=== PATIENT | male | born 1980 | race Caucasian/White ===

== ENCOUNTER 2017-04-07 18:32 | Inpatient (IN) | payer OTHER ==
[~2017-04-07] VITALS: Ht 188 cm; Wt 87.0 kg
--- NOTE | 2017-04-07 19:13 | DIAGNOSTIC IMAGING REPORT ---
LEFT FOREARM 2 VIEWS ROUTINE CLINICAL HISTORY: L forearm pain/injury. COMPARISON: None FINDINGS: No acute fracture of the left radius or ulna is identified. There is no evidence for left elbow joint effusion. There is minimal spurring of the olecranon at the insertion of triceps. IMPRESSION: No acute fracture of the left radius or ulna. Electronically signed by: Derrek Fermin M.D. 04/07/2017 7:12 PM Dictated Date/Time: 04/07/2017 7:10 PM
[2017-04-07] MEDS ORDERED: SODIUM CHLORIDE 0.9% 1000ML 1,000 ML IV STA (19:26)
[2017-04-07] MEDS ORDERED: CEFTRIAXONE SOD INJ 1 GM ADDVIAL IV STA (19:26)
[2017-04-07] MEDS ORDERED: KETOROLAC TROMETHAMINE 30 MG/ML VIAL IV STA (19:26)
[2017-04-07] MEDS ORDERED: SULFAMETHOXAZOLE/TRIMETHOPRIM DS 800/160MG TAB PO STA (19:26)
[2017-04-07] MEDS ORDERED: SERT-234 PO (19:54)
[2017-04-07] MEDS ORDERED: PRLSR20 PO (19:54)
[2017-04-07 20:03] LABS: BASO % 0.2 %; BASO ABS # 0.02 K/uL (0-0.2); COMPLETE YES; EOS % 0.3 %; HEMATOCRIT 39.6 % (42-52); IG% 0.4 %; LYMPH % 21.1 %; LYMPH ABS # 2.76 K/uL (1.2-3.4); MEAN CELL VOLUME 81.1 fL (80-100); MEAN CORPUSCULAR HEMOGLOBIN 28.1 pg (25-34); MEAN CORPUSCULAR HGB CONC 34.6 g/dl (32-36); MEAN PLATELET VOLUME 9.4 fL (7.4-10.4); PLATELET COUNT 352 K/uL (130-400); RED BLOOD COUNT 4.88 M/uL (4.7-6.1); WHITE BLOOD COUNT 13.08 K/uL (4.8-10.8)
--- NOTE | 2017-04-07 20:31 | DIAGNOSTIC IMAGING REPORT ---
LEFT FOREARM ULTRASOUND CLINICAL HISTORY: Left forearm swelling. COMPARISON STUDY: Conventional radiographic study dated 04/07/2017 FINDINGS: Within the left proximal anterior forearm, there is soft tissue edema. There is a complex avascular subcutaneous collection with surrounding hypervascularity measuring 5.8 x 1.9 x 3.5 cm. Given the clinical history of an overlying cellulitis, the findings are viewed as suspicious for an abscess. An organizing hematoma could appear similar. IMPRESSION: Complex 58 x 19 x 35 mm collection within the anterior subcutaneous tissues of the proximal left forearm. Given the clinical history, the findings are viewed as suspicious for abscess. As stated above, an organizing hematoma could appear similar. Electronically signed by: Giuseppe Perez M.D. 04/07/2017 8:30 PM Dictated Date/Time: 04/07/2017 8:28 PM
[2017-04-07 20:35] LABS: ALKALINE PHOSPHATASE 92 U/L (45-117); ALT/SGPT 23 U/L (12-78); AST/SGOT 13 U/L (15-37); BLOOD UREA NITROGEN 7 mg/dl (7-18); BUN/CREATININE RATIO 9.4 (10-20); C-REACTIVE PROTEIN 3.57 mg/dl (0-0.29); CALCIUM 9.1 mg/dl (8.5-10.1); CARBON DIOXIDE 27 mmol/L (21-32); CHLORIDE 101 mmol/L (98-107); CREATININE 0.73 mg/dl (0.60-1.40); GLUCOSE 97 mg/dl (70-99); POTASSIUM 3.8 mmol/L (3.5-5.1); SODIUM 135 mmol/L (136-145)
[2017-04-07] MEDS ORDERED: PIPERACILLIN/TAZOBACTAM 4.5 GM/100ML D5W IV STA (21:26)
[2017-04-07] MEDS ORDERED: BUPIVACAINE/EPINEPHRINE 0.5% MPF 1:200,000 10 ML VIAL ONE (22:11)
--- NOTE | 2017-04-07 22:15 | Surgery Consultation ---
Consultation Date of Consultation: Apr 07, 2017. Attending Physician: History of Present Illness The patient is a 36 year old male who presents to the Emergency Room with complaints of redness, swelling and pain of the left arm/elbow region. The patient believes that he injured the area on Thursday while wrestling with his son. He mainly notice swelling of the area within a few hours. He does not recall any skin injury to the area. Within 48 hours, he then started to notice redness of the region. He also reports being chilled. He has tried to apply ice without any relief of the swelling or pain. Ibuprofen also is not providing adequate pain relief. He currently rates his discomfort a 5 out of 10. The patient does admit to a prior history of IV heroin abuse, but reports that his last injection was in late June. He reports that he has been clean since that time. He denies any prior history of metabolic resistant infections. He did have a right dorsal hand abscess that was drained 1-2 years ago, and believes that that was secondary to IV drug abuse. He currently denies any paresthesias or numbness of the left upper extremity. The patient is [id number]. Tetanus immunization is up-to-date. I saw pt in ER, I reviewed H/P with pt, left arm for one day, with redness tenderness, pt denies fever, no chills, Past Medical/Surgical History Medical Problems: (1) Altered mental status Status: Acute (2) Polysubstance abuse Status: Acute Social History Smoking Status: Current Every Day Smoker Smokeless Tobacco Use: No Alcohol Use: occasionally Drug Use: heroin Marital Status: Occupation Status: employed Allergies Coded Allergies: No Known Allergies (Unverified , 04/07/17) Home Medications Scheduled Omeprazole (Prilosec), 20 MG PO DAILY Sertraline (Zoloft), 100 MG PO QPM Review of Systems Constitutional: No fever, No chills, No sweats, No weight loss, No weakness, No fatigue, No problem reported Eyes: No worsening of vision, No eye pain, No redness, No discharge, No diplopia, No problem reported ENT: No hearing loss, No unusual epistaxis, No nasal symptoms, No sore throat, No tinnitus, No dental problems, No trouble swallowing, No problem reported Respiratory: No cough, No sputum, No wheezing, No shortness of breath, No dyspnea on exertion, No dyspnea at rest, No hemoptysis, No problem reported Cardiovascular: No chest pain, No orthopnea, No PND, No edema, No claudication , No palpitations, No problem reported Abdomen: No pain, No nausea, No vomiting, No diarrhea, No constipation, No GI bleeding, No problem reported Musculoskeletal: No joint pain, No muscle pain, No swelling, No calf pain, No problem reported Neurologic: No memory loss, No paralysis, No weakness, No numbness/tingling, No vertigo, No balance problems, No problem reported Psychiatric: No depression symptoms, No anhedonism, No anxiety, No insomnia, No substance abuse, No problem reported Endocrine: No fatigue, No excessive thirst, No excessive urination, No problem reported Hematologic / Lymphatic: No abnormal bleeding/bruising, No clotting problems, No swollen lymph nodes, No night sweats, No problem reported Physical Exam Date Time Temp Pulse Resp B/P (MAP) Pulse Ox O2 Delivery O2 Flow Rate FiO2 04/07/17 20:49 95 18 140/85 98 Room Air 04/07/17 18:41 36.0 101 16 152/80 98 General Appearance: WD/WN, no apparent distress Head: normocephalic Eyes: normal inspection Neck: supple, no JVD Respiratory/Chest: chest non-tender, lungs clear, normal breath sounds Cardiovascular: regular rate, rhythm, no edema, no gallop, no JVD Abdomen/GI: normal bowel sounds, non tender, soft, no organomegaly Extremities/Musculoskelatal: normal inspection, no calf tenderness Neurologic/Psych: no motor/sensory deficits, alert, normal mood/affect Skin: warm/dry (some redness tenderness at left arm, size 5x6cm, warm) Laboratory Results Last 24 Hours Test 04/07/17 19:40 04/07/17 19:48 04/07/17 21:45 White Blood Count 13.08 K/uL Red Blood Count 4.88 M/uL Hemoglobin 13.7 g/dL Hematocrit 39.6 % Mean Corpuscular Volume 81.1 fL Mean Corpuscular Hemoglobin 28.1 pg Mean Corpuscular Hemoglobin Concent 34.6 g/dl Platelet Count 352 K/uL Mean Platelet Volume 9.4 fL Neutrophils (%) (Auto) 72.0 % Lymphocytes (%) (Auto) 21.1 % Monocytes (%) (Auto) 6.0 % Eosinophils (%) (Auto) 0.3 % Basophils (%) (Auto) 0.2 % Neutrophils # (Auto) 9.43 K/uL Lymphocytes # (Auto) 2.76 K/uL Monocytes # (Auto) 0.78 K/uL Eosinophils # (Auto) 0.04 K/uL Basophils # (Auto) 0.02 K/uL RDW Standard Deviation 42.9 fL RDW Coefficient of Variation 14.5 % Immature Granulocyte % (Auto) 0.4 % Immature Granulocyte # (Auto) 0.05 K/uL Erythrocyte Sedimentation Rate 50 mm/hr Sodium Level 135 mmol/L Potassium Level 3.8 mmol/L Chloride Level 101 mmol/L Carbon Dioxide Level 27 mmol/L Anion Gap 7.0 mmol/L Blood Urea Nitrogen 7 mg/dl Creatinine 0.73 mg/dl Est Creatinine Clear Calc Drug Dose 161.2 ml/min Estimated GFR () 137.3 Estimated GFR (Non- 118.5 BUN/Creatinine Ratio 9.4 Random Glucose 97 mg/dl Calcium Level 9.1 mg/dl Total Bilirubin 0.4 mg/dl Direct Bilirubin mg/dl Aspartate Amino Transf (AST/SGOT) 13 U/L Alanine Aminotransferase (ALT/SGPT) 23 U/L Alkaline Phosphatase 92 U/L C-Reactive Protein 3.57 mg/dl Total Protein 8.7 gm/dl Albumin 3.7 gm/dl Chemistry Specimen Hemolysis Bedside Lactic Acid Venous 2.13 mmol/L Assessment & Plan U/S study-IMPRESSION: Complex 58 x 19 x 35 mm collection within the anterior subcutaneous tissues of the proximal left forearm. Given the clinical history, the findings are viewed as suspicious for abscess. As stated above, an organizing hematoma could appear similar. IMP: abscess on left arm, Plan: I recommend to do I/D abscess on left arm, D/W benefits, risks and alternatives of the procedure, the risks- infection, bleeding, sepsis, injury vessels, never, pt understood, he agrees with the plan, I answered all questions ,
[2017-04-07 22:18] LABS: BENZODIAZEPINE, URINE NEG (NEG); COCAINE,URINE NEG (NEG); PHENCYCLIDINE, URINE NEG (NEG)
[2017-04-07] MEDS ORDERED: FENTANYL CITRATE INJ 50 MCG/1 ML 2 ML VIAL ONE ×2 (22:27→23:17)
[2017-04-07] MEDS ORDERED: MIDAZOLAM HCL 1 MG/ML 2ML VIAL ONE (22:27)
[2017-04-07] MEDS ORDERED: POLYETHYLENE (MIRALAX) 17 GM PACK PO PRN (22:45)
[2017-04-07] MEDS ORDERED: ONDANSETRON INJ 2 MG/ML 2 ML VIAL IV PRN ×2 (22:45→23:00)
[2017-04-07] MEDS ORDERED: MAGNESIUM HYDROXIDE SUSP 30 ML UDC PO PRN (22:45)
--- NOTE | 2017-04-07 22:49 | History & Physical Bridge Note ---
H&P Re-Evaluation Bridge Note: I have examined the patient, reviewed the History & Physical and in the interval since the performance of the History & Physical I have noted the following changes of clinical significance: No changes noted
--- NOTE | 2017-04-07 22:59 | EMERGENCY ROOM VISIT NOTE ---
History First contact with patient: 18:47 Chief Complaint: ARM PAIN Stated Complaint: SWOLLEN LEFT ARM History of Present Illness The patient is a 36 year old male who presents to the Emergency Room with complaints of redness, swelling and pain of the left arm/elbow region. The patient believes that he injured the area on Thursday while wrestling with his son. He mainly notice swelling of the area within a few hours. He does not recall any skin injury to the area. Within 48 hours, he then started to notice redness of the region. He also reports being chilled. He has tried to apply ice without any relief of the swelling or pain. Ibuprofen also is not providing adequate pain relief. He currently rates his discomfort a 5 out of 10. The patient does admit to a prior history of IV heroin abuse, but reports that his last injection was in late June. He reports that he has been clean since that time. He denies any prior history of antibiotic resistant infections. He did have a right dorsal hand abscess that was drained 1-2 years ago, and believes that that was secondary to IV drug abuse. He currently denies any paresthesias or numbness of the left upper extremity. The patient is [id number]. Tetanus immunization is up-to-date. Review of Systems HEENT: Denies dizziness, visual problems, hearing loss, tinnitus. Denies difficulty swallowing or oral lesions. PULMONARY: Denies cough, shortness of breath, sputum production or hemoptysis. CARDIOVASCULAR: Denies chest pain, palpitations, dyspnea on exertion, orthopnea or peripheral edema. GASTROINTESTINAL: Denies diarrhea, constipation, nausea, vomiting, or abdominal pain. GENITOURINARY: Denies dysuria, frequency, urgency or nocturia. NEUROLOGIC: Denies history of epilepsy, CVA, TIA or chronic headaches. MUSCULOSKELETAL: Denies history of joint tenderness/swelling. SKIN: Denies history of chronic rashes or lesions. PSYCHIATRIC: Denies history of depression or mental illness. ENDOCRINE: Denies history of diabetes or thyroid disorders. Past Medical/Surgical History Medical Problems: (1) Abscess (2) Drug overdose Family History FH: cancer FH: diabetes mellitus FH: hypertension Social History Smoking Status: Current Every Day Smoker Alcohol Use: none Drug Use: heroin Marital Status: Occupation Status: employed Current/Historical Medications Scheduled Omeprazole (Prilosec), 20 MG PO DAILY Sertraline (Zoloft), 100 MG PO QPM Physical Exam Vital Signs Date Time Temp Pulse Resp B/P (MAP) Pulse Ox O2 Delivery O2 Flow Rate FiO2 04/08/17 00:15 36.6 72 15 119/74 100 Room Air 04/08/17 00:05 36.6 75 15 118/80 98 Room Air 04/07/17 23:55 36.6 75 16 123/78 97 Room Air 04/07/17 23:45 36.5 82 16 131/79 95 Room Air 04/07/17 22:31 36.0 93 18 142/89 99 04/07/17 20:49 95 18 140/85 98 Room Air 04/07/17 18:41 36.0 101 16 152/80 98 Physical Exam CONSTITUTIONAL: Healthy and well nourished. Alert and oriented X 3 with positive affect. Patient does not appear acutely or toxic. HEENT: Normocephalic, atraumatic. Pupils equal, round and reactive. No scleral icterus or conjunctival injection/pallor. NECK: Full active range of motion without discomfort. No JVD or carotid bruits. RESPIRATORY: Clear to auscultation bilaterally with no wheezing, crackles, rhonchi or stridor. CARDIOVASCULAR: Regular rate and rhythm with no murmurs, rubs or gallops. GASTROINTESTINAL: Bowel sounds present in all quadrants. Soft and nontender to palpation. MUSCULOSKELETAL: Examination shows a large area of induration of the proximal anterior forearm. There is significant overriding erythema. No obvious fluctuance. Flexion and extension of the elbow worsens the patient's discomfort. He has no worsening pain with flexion or extension of the fingers or wrist. Distal pulses are intact. INTEGUMENTARY: No other rashes or skin conditions except as described in the previous section for current infection. NEUROLOGIC: Cranial nerves II-XII grossly intact. No focal neurologic deficits noted. Left hand and fingers are sensory intact. Medical Decision & Procedures ER Provider Diagnostic Interpretation: My interpretation of left forearm x-rays does not show any underlying evidence for osteomyelitis or radiopaque foreign bodies. Radiologist report is as follows: LEFT FOREARM 2 VIEWS ROUTINE CLINICAL HISTORY: L forearm pain/injury. COMPARISON: None FINDINGS: No acute fracture of the left radius or ulna is identified. There is no evidence for left elbow joint effusion. There is minimal spurring of the olecranon at the insertion of triceps. IMPRESSION: No acute fracture of the left radius or ulna. Nonvascular ultrasound of the left elbow shows a large complex volar proximal forearm abscess. Radiologist report is as follows: LEFT FOREARM ULTRASOUND CLINICAL HISTORY: Left forearm swelling. COMPARISON STUDY: Conventional radiographic study dated 04/07/2017 FINDINGS: Within the left proximal anterior forearm, there is soft tissue edema. There is a complex avascular subcutaneous collection with surrounding hypervascularity measuring 5.8 x 1.9 x 3.5 cm. Given the clinical history of an overlying cellulitis, the findings are viewed as suspicious for an abscess. An organizing hematoma could appear similar. IMPRESSION: Complex 58 x 19 x 35 mm collection within the anterior subcutaneous tissues of the proximal left forearm. Given the clinical history, the findings are viewed as suspicious for abscess. As stated above, an organizing hematoma could appear similar. Laboratory Results 04/07/17 19:40 Red Blood Count 4.88, Mean Corpuscular Volume 81.1, Mean Corpuscular Hemoglobin 28.1, Mean Corpuscular Hemoglobin Concent 34.6, Mean Platelet Volume 9.4, Neutrophils (%) (Auto) 72.0, Lymphocytes (%) (Auto) 21.1, Monocytes (%) (Auto) 6.0, Eosinophils (%) (Auto) 0.3, Basophils (%) (Auto) 0.2, Neutrophils # (Auto) 9.43, Lymphocytes # (Auto) 2.76, Monocytes # (Auto) 0.78, Eosinophils # (Auto) 0.04, Basophils # (Auto) 0.02 04/07/17 19:40 Test 04/07/17 19:40 04/07/17 19:48 04/07/17 21:45 White Blood Count 13.08 K/uL (4.8-10.8) Red Blood Count 4.88 M/uL (4.7-6.1) Hemoglobin 13.7 g/dL (14.0-18.0) Hematocrit 39.6 % (42-52) Mean Corpuscular Volume 81.1 fL (80-100) Mean Corpuscular Hemoglobin 28.1 pg (25-34) Mean Corpuscular Hemoglobin Concent 34.6 g/dl (32-36) Platelet Count 352 K/uL (130-400) Mean Platelet Volume 9.4 fL (7.4-10.4) Neutrophils (%) (Auto) 72.0 % Lymphocytes (%) (Auto) 21.1 % Monocytes (%) (Auto) 6.0 % Eosinophils (%) (Auto) 0.3 % Basophils (%) (Auto) 0.2 % Neutrophils # (Auto) 9.43 K/uL (1.4-6.5) Lymphocytes # (Auto) 2.76 K/uL (1.2-3.4) Monocytes # (Auto) 0.78 K/uL (0.11-0.59) Eosinophils # (Auto) 0.04 K/uL (0-0.5) Basophils # (Auto) 0.02 K/uL (0-0.2) RDW Standard Deviation 42.9 fL (36.4-46.3) RDW Coefficient of Variation 14.5 % (11.5-14.5) Immature Granulocyte % (Auto) 0.4 % Immature Granulocyte # (Auto) 0.05 K/uL (0.00-0.02) Erythrocyte Sedimentation Rate 50 mm/hr (0-14) Anion Gap 7.0 mmol/L (3-11) Est Creatinine Clear Calc Drug Dose 161.2 ml/min Estimated GFR () 137.3 Estimated GFR (Non- 118.5 BUN/Creatinine Ratio 9.4 (10-20) Calcium Level 9.1 mg/dl (8.5-10.1) Total Bilirubin 0.4 mg/dl (0.2-1) Direct Bilirubin mg/dl (0-0.2) Aspartate Amino Transf (AST/SGOT) 13 U/L (15-37) Alanine Aminotransferase (ALT/SGPT) 23 U/L (12-78) Alkaline Phosphatase 92 U/L (45-117) Total Creatine Kinase 70 U/L (39-308) C-Reactive Protein 3.57 mg/dl (0-0.29) Total Protein 8.7 gm/dl (6.4-8.2) Albumin 3.7 gm/dl (3.4-5.0) Chemistry Specimen Hemolysis Bedside Lactic Acid Venous 2.13 mmol/L (0.90-1.70) Urine Opiates Screen NEG (NEG) Urine Methadone, Qualitative NEG (NEG) Urine Barbiturates NEG (NEG) Urine Phencyclidine (PCP) Level NEG (NEG) Ur Amphetamine/Methamphetamine NEG (NEG) MDMA (Ecstasy) Screen NEG (NEG) Urine Benzodiazepines Screen NEG (NEG) Urine Cocaine Metabolite NEG (NEG) Urine Marijuana (THC) NEG (NEG) The above labs were reviewed. The patient has a leukocytosis with left shift and bandemia. Lactate, CRP and sedimentation rate are elevated. Urine drug screen is negative. Medications Administered Medications (Trade) Dose Ordered Sig/Mer Route Start Time Stop Time Status Last Admin Dose Admin Sodium Chloride 1,000 ml @ 999 mls/hr Q1H1M STAT IV 04/07/17 19:26 04/07/17 20:26 DC 04/07/17 19:57 999 MLS/HR Ceftriaxone Sodium (Rocephin Inj) 1 gm NOW STAT IV 04/07/17 19:26 04/07/17 19:31 DC 04/07/17 19:57 1 GM Trimethoprim/ Sulfamethoxazole (Septra Ds 800/ 160MG Tab) 1 tab NOW STAT PO 04/07/17 19:26 04/07/17 19:31 DC 04/07/17 19:56 1 TAB Ketorolac Tromethamine (Toradol Inj) 30 mg NOW STAT IV 04/07/17 19:26 04/07/17 19:31 DC 04/07/17 19:57 30 MG Piperacillin Sod/ Tazobactam Sod (Zosyn Iv) 4.5 gm NOW STAT IV 04/07/17 21:26 04/07/17 21:27 DC 04/07/17 21:46 4.5 GM Neomycin/ Polymyxin/ Bacitracin (Neosporin Oint) 45 appln STK-MED ONCE .ROUTE 04/07/17 23:01 04/07/17 23:02 DC 04/07/17 23:20 45 APPLN Lidocaine HCl (Xylocaine 1% Inj (Local)) 20 ml STK-MED ONCE .ROUTE 04/07/17 23:16 04/07/17 23:17 DC 04/07/17 23:25 20 ML Bupivacaine HCl (Marcaine 0.5% MPF Inj) 30 ml STK-MED ONCE .ROUTE 04/07/17 23:16 04/07/17 23:17 DC 04/07/17 23:25 20 ML ED Course Patient history and physical exam were performed. Nurse's notes were reviewed. Vital signs were reviewed. The patient is afebrile, but mildly tachycardic at 101 bpm. Blood pressure is normal. Because of concern for abscess versus cellulitis, I did suggest a more extensive workup. The patient was in agreement. IV access was established, and labs were drawn including including blood cultures 2. After blood cultures were drawn, the patient was administered Rocephin 1 g IV infusion and Bactrim DS orally. X-rays of the left forearm were normal. Nonvascular ultrasound of the left anterior elbow region shows a large complex proximal forearm abscess. Review of labs shows an elevated lactate, sedimentation rate and CRP. At this point, the patient was also administered Zosyn 4.5 mg IVP. The case was also discussed with Dr. Bautista , ED attending physician, who agrees surgical consultation. The case was first discussed with Dr. Chapin, general surgeon, who came to the emergency department, evaluated the patient and will be taking the patient for surgical intervention. He has asked that the hospitalist service provide further medical management. Consultation will also be made with Dr. Whiteside, [facility] hospitalist. Medical Decision Patient has ultrasound findings concerning for a large proximal forearm abscess on ultrasound. The patient denies any recent IV heroin use. His urine drug screen is negative. X-rays does not show any evidence for underlying bony injury, osteomyelitis or radiopaque foreign body. Medication Reconcilliation Current Medication List: was personally reviewed by ca Blood Pressure Screening Patient's blood pressure: Normal blood pressure Impression Primary Impression: Abscess of forearm, left Departure Information Referrals Jayleen Correia MD (PCP) Patient Instructions My [facility]
[2017-04-07] MEDS ORDERED: PROMETHAZINE HCL INJ 12.5 MG in SODIUM CHLORIDE 0.9% 50ML 50 ML IV PRN (23:00)
[2017-04-07] MEDS ORDERED: HYDROmorphone INJ 2 MG/ML SYR/VIAL IV PRN (23:00)
[2017-04-07] MEDS ORDERED: LABETALOL HCL IV 5 MG/ML 20ML IV PRN (23:00)
[2017-04-07] MEDS ORDERED: ATROPINE SULFATE 0.1 MG/ML 5ML SYR IV PRN (23:00)
[2017-04-07] MEDS ORDERED: CEFAZOLIN IV 2,000 MG/60 ML D5W IV SCH (23:00)
--- NOTE | 2017-04-07 23:00 | History and Physical ---
History & Physical Date & Time of Service: Apr 07, 2017 at 22:57 Chief Complaint: Swollen Left Arm Primary Care Physician: Jayleen Correia MD History of Present Illness Source: patient 36-year-old male presents to the ER with complaints of swelling, redness and pain in his left forearm which started about 2 days ago. The patient states that he notices swelling after he was wrestling with his son. Complains of some pain about 3-4/10 which is localized to the area and worse on extending or flexing the elbow joint. Denies any numbness or tingling or loss of motor strength in the affected arm. He denies any history of trauma, insect bites. 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 Complains of some low-grade fever with chills and sweating Past Medical/Surgical History IV drug overdose Social History Smoking Status: Current Every Day Smoker Smokeless Tobacco Use: No Alcohol Use: occasionally Drug Use: heroin Marital Status: Housing status: lives with family Occupational Status: employed Multi-Drug Resistant Organisms History of MDRO: No Allergies Coded Allergies: No Known Allergies (Unverified , 04/07/17) Home Medications Scheduled Omeprazole (Prilosec), 20 MG PO DAILY Sertraline (Zoloft), 100 MG PO QPM Review of Systems Constitutional: + fever, + chills, + sweats Eyes: No worsening of vision ENT: No hearing loss Respiratory: No cough Cardiovascular: No chest pain Abdomen: No pain, No nausea, No vomiting Musculoskeletal: + swelling (on proximal left forearm), No joint pain Genitourinary - Male: No hematuria, No dysuria Neurologic: No memory loss Psychiatric: No depression symptoms Endocrine: No fatigue Hematologic / Lymphatic: No abnormal bleeding/bruising Physical Exam Vital Signs Date Time Temp Pulse Resp B/P (MAP) Pulse Ox O2 Delivery O2 Flow Rate FiO2 04/07/17 22:31 36.0 93 18 142/89 99 04/07/17 20:49 95 18 140/85 98 Room Air 04/07/17 18:41 36.0 101 16 152/80 98 General Appearance: no apparent distress Head: atraumatic ENT: hearing grossly normal Neck: supple Respiratory/Chest: lungs clear, normal breath sounds, no respiratory distress Cardiovascular: regular rate, rhythm, no murmur Abdomen/GI: normal bowel sounds, non tender, soft Extremities/Musculoskelatal: no pedal edema, + pertinent finding (left proximal forearm with a tender, warm, erythematous, indurated area) Neurologic/Psych: alert, normal mood/affect, oriented x 3 Diagnostics Laboratory Results Results Past 24 Hours Test 04/07/17 19:40 04/07/17 19:48 04/07/17 21:45 Range/Units White Blood Count 13.08 4.8-10.8 K/uL Red Blood Count 4.88 4.7-6.1 M/uL Hemoglobin 13.7 14.0-18.0 g/dL Hematocrit 39.6 42-52 % Mean Corpuscular Volume 81.1 80-100 fL Mean Corpuscular Hemoglobin 28.1 25-34 pg Mean Corpuscular Hemoglobin Concent 34.6 32-36 g/dl Platelet Count 352 130-400 K/uL Mean Platelet Volume 9.4 7.4-10.4 fL Neutrophils (%) (Auto) 72.0 % Lymphocytes (%) (Auto) 21.1 % Monocytes (%) (Auto) 6.0 % Eosinophils (%) (Auto) 0.3 % Basophils (%) (Auto) 0.2 % Neutrophils # (Auto) 9.43 1.4-6.5 K/uL Lymphocytes # (Auto) 2.76 1.2-3.4 K/uL Monocytes # (Auto) 0.78 0.11-0.59 K/uL Eosinophils # (Auto) 0.04 0-0.5 K/uL Basophils # (Auto) 0.02 0-0.2 K/uL RDW Standard Deviation 42.9 36.4-46.3 fL RDW Coefficient of Variation 14.5 11.5-14.5 % Immature Granulocyte % (Auto) 0.4 % Immature Granulocyte # (Auto) 0.05 0.00-0.02 K/uL Erythrocyte Sedimentation Rate 50 0-14 mm/hr Sodium Level 135 136-145 mmol/L Potassium Level 3.8 3.5-5.1 mmol/L Chloride Level 101 98-107 mmol/L Carbon Dioxide Level 27 21-32 mmol/L Anion Gap 7.0 3-11 mmol/L Blood Urea Nitrogen 7 7-18 mg/dl Creatinine 0.73 0.60-1.40 mg/dl Est Creatinine Clear Calc Drug Dose 161.2 ml/min Estimated GFR () 137.3 Estimated GFR (Non- 118.5 BUN/Creatinine Ratio 9.4 10-20 Random Glucose 97 70-99 mg/dl Calcium Level 9.1 8.5-10.1 mg/dl Total Bilirubin 0.4 0.2-1 mg/dl Direct Bilirubin 0-0.2 mg/dl Aspartate Amino Transf (AST/SGOT) 13 15-37 U/L Alanine Aminotransferase (ALT/SGPT) 23 12-78 U/L Alkaline Phosphatase 92 45-117 U/L C-Reactive Protein 3.57 0-0.29 mg/dl Total Protein 8.7 6.4-8.2 gm/dl Albumin 3.7 3.4-5.0 gm/dl Chemistry Specimen Hemolysis Bedside Lactic Acid Venous 2.13 0.90-1.70 mmol/L Urine Opiates Screen NEG NEG Urine Methadone, Qualitative NEG NEG Urine Barbiturates NEG NEG Urine Phencyclidine (PCP) Level NEG NEG Ur Amphetamine/Methamphetamine NEG NEG MDMA (Ecstasy) Screen NEG NEG Urine Benzodiazepines Screen NEG NEG Urine Cocaine Metabolite NEG NEG Urine Marijuana (THC) NEG NEG Microbiology Results 04/07/17 Blood Culture, Received Pending 04/07/17 Blood Culture, Received Pending Diagnostic Radiology [~ rep ct add3]] LEFT FOREARM 2 VIEWS ROUTINE CLINICAL HISTORY: L forearm pain/injury. COMPARISON: None FINDINGS: No acute fracture of the left radius or ulna is identified. There is no evidence for left elbow joint effusion. There is minimal spurring of the olecranon at the insertion of triceps. IMPRESSION: No acute fracture of the left radius or ulna. Electronically signed by: Derrek Fermin M.D. 04/07/2017 7:12 PM [~ rep ct add3]] LEFT FOREARM ULTRASOUND CLINICAL HISTORY: Left forearm swelling. COMPARISON STUDY: Conventional radiographic study dated 04/07/2017 FINDINGS: Within the left proximal anterior forearm, there is soft tissue edema. There is a complex avascular subcutaneous collection with surrounding hypervascularity measuring 5.8 x 1.9 x 3.5 cm. Given the clinical history of an overlying cellulitis, the findings are viewed as suspicious for an abscess. An organizing hematoma could appear similar. IMPRESSION: Complex 58 x 19 x 35 mm collection within the anterior subcutaneous tissues of the proximal left forearm. Given the clinical history, the findings are viewed as suspicious for abscess. As stated above, an organizing hematoma could appear similar. Electronically signed by: Giuseppe Perez M.D. 04/07/2017 8:30 PM Impression Assessment and Plan 36-year-old male presents to the ER with complaints of swelling, redness and pain in his left forearm which started about 2 days ago. Associated fevers and chills .the patient has a history of IV drug abuse but he said the was in June 2016 Left proximal forearm abscess: -X-ray of Left forearm negative for any fractures -Ultrasound left forearm revealed complex 58 x 19 x 35 mm collection within the anterior subcutaneous tissues suggestive of an abscess. -Gen. surgery was consulted and I&D was performed - Empiric coverage with vancomycin and clindamycin - Pain control with Toradol Depression: -Continue Zoloft GERD: -Continue Prilosec DVT prophylaxis SCDs Full code Resident Physician Supervision Note: Pt seen/examined independently. I discussed the case with the resident and agree with the findings and plan as documented in the note. Any exceptions or clarifications are listed here: 36 y/o M admitted with abscess/cellulitis L forearm - may have followed minor trauma when wrestling with his son - has a history of IVDU although he denies recent use. Pt proceeded directly to OR for I&D OE AAO x 3 S1,2 R CTAB NT, ND No CCE - L forearm is post I&D P: Pending blood cultures, pt placed on Vanc/Clinda - will f/u with surgery Above discussed with pt and resident Documented By: Raulito Whiteside Level of Care Med/Surg Resuscitation Status FULL RESUSCITATION VTE Prophylaxis VTE Risk Assessment Done? Y/N: Yes Risk Level: Moderate Given or contraindicated: SCD's Resident Tracking Resident Involvement: Resident Care Provided Care Provided: Adult Hospital Medicine
[2017-04-07] MEDS ORDERED: NEOMYCIN/POLYMYX/BACITR OINT 15 GM TUBE ONE (23:01)
[2017-04-07] MEDS ORDERED: LIDOCAINE HCL 1% 20 ML VIAL ONE (23:16)
[2017-04-07] MEDS ORDERED: BUPIVACAINE 0.5 % 5 MG/1 ML MPF 30ML VIAL ONE (23:16)
[2017-04-07] MEDS ORDERED: METOCLOPRAMIDE HCL INJ 5 MG/ML 2 ML VIAL ONE (23:40)
[2017-04-07] MEDS ORDERED: LIDOCAINE HCL 2% 2 ML VIAL (20MG/ML) ONE (23:40)
[2017-04-07] MEDS ORDERED: ONDANSETRON INJ 2 MG/ML 2 ML VIAL ONE (23:40)
[2017-04-07] MEDS ORDERED: PROPOFOL IV EMULSION 10 MG/ML 20 ML VIAL IV ONE (23:40)
--- NOTE | 2017-04-07 23:44 | [facility] Post Operative Brief Note ---
Immediate Operative Summary Operative Date Apr 07, 2017. Pre-Operative Diagnosis abscess of left arm Post-Operative Diagnosis abscess of left arm Procedure(s) Performed incision and drainage of abcess of left arm Surgeon Dr. Marine Chapin Fur Repairer Surgeon(s) Luo Fuchs, PGY-3 Estimated Blood Loss 10cc Findings abscess on left arm, 10 cc pus came out, wound culture sent Fluids (cc crystalloids) 600ml Specimens wound culture Drains packing Anesthesia general Complication(s) None Disposition Recovery Room / PACU
[2017-04-08] VITALS (9 sets, daily range): BP systolic 114–131; BP diastolic 63–80; PULSE 74–82; TEMP 36.6–36.8; O2SAT 97–99; Ht 188 cm; Wt 87.0 kg
[2017-04-08] MEDS ORDERED: VANCOMYCIN CONSULT ACTIVE PRN (02:00)
[2017-04-08] MEDS: CLINDAMYCIN IV 300 MG in DEXTROSE 5% 50ML 50 ML IV SCH ×2 (02:06→10:08)
[2017-04-08] MEDS: ACETAMINOPHEN 325 MG TAB PO PRN ×2 (02:18→08:17)
[2017-04-08] MEDS ORDERED: VANCOMYCIN INJ 2,250 MG in SODIUM CHLORIDE 0.9% 500ML 500 ML IV SCH (02:30)
--- NOTE | 2017-04-08 03:25 | Anesthesiology Progress Note ---
Anesthesia Post Op Note Date & Time Apr 08, 2017 at 03:25 Vital Signs Pain Intensity: 3.0 Vital Signs Past 12 Hours Date Time Temp Pulse Resp B/P (MAP) Pulse Ox O2 Delivery O2 Flow Rate FiO2 04/08/17 03:13 36.8 74 16 119/69 (86) 98 Room Air 04/08/17 02:21 36.6 78 16 119/69 (86) 99 Room Air 04/08/17 01:50 36.6 80 16 131/69 (89) 98 Room Air 04/08/17 01:36 Room Air 04/08/17 01:20 36.7 81 16 127/71 (89) 99 Room Air 04/08/17 01:00 36.6 74 18 124/77 97 Room Air 04/08/17 00:45 36.6 72 18 128/76 99 Room Air 04/08/17 00:35 36.6 75 17 120/78 98 Room Air 04/08/17 00:25 36.6 71 18 121/78 99 Room Air 04/08/17 00:15 36.6 72 15 119/74 100 Room Air 04/08/17 00:05 36.6 75 15 118/80 98 Room Air 04/07/17 23:55 36.6 75 16 123/78 97 Room Air 04/07/17 23:45 36.5 82 16 131/79 95 Room Air 04/07/17 22:31 36.0 93 18 142/89 99 04/07/17 20:49 95 18 140/85 98 Room Air 04/07/17 18:41 36.0 101 16 152/80 98 Notes Mental Status: alert / awake / arousable, participated in evaluation Pt Amnestic to Procedure: Yes Nausea / Vomiting: adequately controlled Pain: adequately controlled Airway Patency, RR, SpO2: stable & adequate BP & HR: stable & adequate Hydration State: stable & adequate Anesthetic Complications: no major complications apparent
[2017-04-08] MEDS ORDERED: NURSING VERBAL MED ORDER ONE ×2 (07:30→12:30)
--- NOTE | 2017-04-08 07:33 | Surgery Progress Note ---
Surgery Progress Note Date of Service Apr 08, 2017. Subjective Post OP Day: 1 + feeling well F/U S/P I/D abscess on left arm, pt is doing much, less pain, less redness, the wound is dry, no fever, Objective Vital Signs: Date Time Temp Pulse Resp B/P (MAP) Pulse Ox O2 Delivery O2 Flow Rate FiO2 04/08/17 04:23 36.7 82 16 114/63 (80) 97 Room Air 04/08/17 03:13 36.8 74 16 119/69 (86) 98 Room Air 04/08/17 02:21 36.6 78 16 119/69 (86) 99 Room Air 04/08/17 01:50 36.6 80 16 131/69 (89) 98 Room Air 04/08/17 01:36 Room Air 04/08/17 01:20 Room Air 04/08/17 01:20 Room Air 04/08/17 01:20 36.7 81 16 127/71 (89) 99 Room Air 04/08/17 01:00 36.6 74 18 124/77 97 Room Air 04/08/17 00:45 36.6 72 18 128/76 99 Room Air 04/08/17 00:35 36.6 75 17 120/78 98 Room Air 04/08/17 00:25 36.6 71 18 121/78 99 Room Air 04/08/17 00:15 36.6 72 15 119/74 100 Room Air 04/08/17 00:05 36.6 75 15 118/80 98 Room Air 04/07/17 23:55 36.6 75 16 123/78 97 Room Air 04/07/17 23:45 36.5 82 16 131/79 95 Room Air 04/07/17 22:31 36.0 93 18 142/89 99 04/07/17 20:49 95 18 140/85 98 Room Air 04/07/17 18:41 36.0 101 16 152/80 98 General Appearance: WD/WN, no apparent distress Head: normocephalic Neck: supple, no JVD Respiratory/Chest: chest non-tender, lungs clear Cardiovascular: regular rate, rhythm, no edema, no gallop, no JVD Abdomen: normal bowel sounds, non tender, non distended, soft Incision(s): clean, dry, intact Extremities: normal range of motion, non-tender, normal inspection Laboratory Results: Results Past 24 Hours Test 04/07/17 19:40 04/07/17 19:48 04/07/17 21:45 04/08/17 06:48 Range/Units White Blood Count 13.08 4.8-10.8 K/uL Red Blood Count 4.88 4.7-6.1 M/uL Hemoglobin 13.7 14.0-18.0 g/dL Hematocrit 39.6 42-52 % Mean Corpuscular Volume 81.1 80-100 fL Mean Corpuscular Hemoglobin 28.1 25-34 pg Mean Corpuscular Hemoglobin Concent 34.6 32-36 g/dl Platelet Count 352 130-400 K/uL Mean Platelet Volume 9.4 7.4-10.4 fL Neutrophils (%) (Auto) 72.0 % Lymphocytes (%) (Auto) 21.1 % Monocytes (%) (Auto) 6.0 % Eosinophils (%) (Auto) 0.3 % Basophils (%) (Auto) 0.2 % Neutrophils # (Auto) 9.43 1.4-6.5 K/uL Lymphocytes # (Auto) 2.76 1.2-3.4 K/uL Monocytes # (Auto) 0.78 0.11-0.59 K/uL Eosinophils # (Auto) 0.04 0-0.5 K/uL Basophils # (Auto) 0.02 0-0.2 K/uL RDW Standard Deviation 42.9 36.4-46.3 fL RDW Coefficient of Variation 14.5 11.5-14.5 % Immature Granulocyte % (Auto) 0.4 % Immature Granulocyte # (Auto) 0.05 0.00-0.02 K/uL Erythrocyte Sedimentation Rate 50 0-14 mm/hr Sodium Level 135 136-145 mmol/L Potassium Level 3.8 3.5-5.1 mmol/L Chloride Level 101 98-107 mmol/L Carbon Dioxide Level 27 21-32 mmol/L Anion Gap 7.0 3-11 mmol/L Blood Urea Nitrogen 7 7-18 mg/dl Creatinine 0.73 0.60-1.40 mg/dl Est Creatinine Clear Calc Drug Dose 161.2 ml/min Estimated GFR () 137.3 Estimated GFR (Non- 118.5 BUN/Creatinine Ratio 9.4 10-20 Random Glucose 97 70-99 mg/dl Calcium Level 9.1 8.5-10.1 mg/dl Total Bilirubin 0.4 0.2-1 mg/dl Direct Bilirubin 0-0.2 mg/dl Aspartate Amino Transf (AST/SGOT) 13 15-37 U/L Alanine Aminotransferase (ALT/SGPT) 23 12-78 U/L Alkaline Phosphatase 92 45-117 U/L Total Creatine Kinase 70 39-308 U/L C-Reactive Protein 3.57 0-0.29 mg/dl Total Protein 8.7 6.4-8.2 gm/dl Albumin 3.7 3.4-5.0 gm/dl Chemistry Specimen Hemolysis Bedside Lactic Acid Venous 2.13 0.90-1.70 mmol/L Urine Opiates Screen NEG NEG Urine Methadone, Qualitative NEG NEG Urine Barbiturates NEG NEG Urine Phencyclidine (PCP) Level NEG NEG Ur Amphetamine/Methamphetamine NEG NEG MDMA (Ecstasy) Screen NEG NEG Urine Benzodiazepines Screen NEG NEG Urine Cocaine Metabolite NEG NEG Urine Marijuana (THC) NEG NEG Microbiology Results 04/07/17 Blood Culture, Received Pending 04/07/17 Blood Culture, Received Pending Assessment & Plan F/U S/P I/D abscess on left arm, pt is doing much better, the wound is dry pt can be discharged home today, F/U [facility] wound care center doctor tomorrow, clindamycin 300mg po QID x 7 days F/U Dr. Chapin 2 weeks,
[2017-04-08 07:43] LABS: HEMATOCRIT 33.3 % (42-52); MEAN CELL VOLUME 81.8 fL (80-100); MEAN CORPUSCULAR HEMOGLOBIN 26.8 pg (25-34); MEAN CORPUSCULAR HGB CONC 32.7 g/dl (32-36); MEAN PLATELET VOLUME 9.4 fL (7.4-10.4); PLATELET COUNT 275 K/uL (130-400); RED BLOOD COUNT 4.07 M/uL (4.7-6.1); WHITE BLOOD COUNT 10.55 K/uL (4.8-10.8)
[2017-04-08] MEDS ORDERED: BACITRACIN OINT 15 GM TUBE EXT PRN (08:00)
[2017-04-08 08:11] LABS: BUN/CREATININE RATIO 8.4 (10-20); CALCIUM 8.5 mg/dl (8.5-10.1); CREATININE 0.68 mg/dl (0.60-1.40); POTASSIUM 3.7 mmol/L (3.5-5.1)
[2017-04-08] MEDS ORDERED: PANTOprazole SOD 40 MG TAB PO SCH (09:00)
--- NOTE | 2017-04-08 09:00 | OPERATIVE REPORT ---
DATE OF OPERATION: 04/07/2017 PREOPERATIVE DIAGNOSIS: Abscess on the left arm. POSTOPERATIVE DIAGNOSIS: Same. OPERATION: I&D abscess on the left arm. SURGEON: Dr. Marine Chapin M.D. ANESTHESIA: General. ESTIMATED BLOOD LOSS: About 10 mL. FINDINGS: Abscess about 10 mL of pus come out from the abscess. The wound culture sent. Packing the wound. COMPLICATIONS: None. INDICATIONS FOR THE PROCEDURE: This is a 36-year-old gentleman who presented left side arm pain with redness, tenderness with a 1-day history. The patient had IV drug use history in the past but right now patient denied any IV drug use. The patient had ultrasound showing possible abscess on the left side arm. I recommend to do the I&D abscess on the left side arm. I did talk to the patient about the benefit and risk, alternate procedure. I indicated the risks may include but not limited such as bleeding, infection, injury vessels or injury to nerves, sepsis. The patient understands. He signed informed consent and I answered all questions. DETAILS OF PROCEDURE: We brought the patient to the OR, put the patient in the supine position. The patient received SCD on bilateral legs to prevent DVT. Also, the patient received 2 grams Ancef IV for prophylactic antibiotic. The patient received general anesthesia without difficulty. The left side arm was prepped and draped in routine sterile fashion. There was significant swelling, redness, tenderness on the left side arm size about 5 x 4 cm. After the patient's left side arm prepped and draped in routine sterile fashion and after timeout, I injected the local anesthesia by using 1% lidocaine mixed with 0.5% Marcaine around the abscess. Then I made about a 2 cm incision on the abscess. There was some pus come out immediately. We cleaned up the pus and used normal saline flushing the wound and we also sent culture of pus drainage. Hemostasis was obtained using quarter inch iodoform packing the wound. I also used some bacitracin. Then we put the dressing on. The patient tolerated the procedure well and after the procedure I did talk to the patient about the OR finding and procedure we did. The patient understands. The patient will be admitted to hospital overnight for IV antibiotics. I attest to the content of the Intraoperative Record and any orders documented therein. Any exceptions are noted below. ALDAIR
[2017-04-08] MEDS ORDERED: VANCOMYCIN INJ 1,250 MG in SODIUM CHLORIDE 0.9% 250ML 250 ML IV SCH (12:00)
[2017-04-08] MEDS ORDERED: CLIN300C2 PO (12:38)
--- NOTE | 2017-04-08 12:52 | Discharge Instructions ---
Discharge Instructions Date of Service Apr 08, 2017. Admission Reason for Admission: Abscess Discharge Discharge Diagnosis / Problem: Left Arm Abscess Discharge Goals Goal(s): Improve function, Therapeutic intervention Activity Recommendations Activity Limitations: per Instructions/Follow-up section Lifting Limitations: until after follow-up appointment Exercise/Sports Limitations: until after follow-up appointment . Instructions / Follow-Up Instructions / Follow-Up You were seen in the hospital for an abscess of your left arm. Ultrasound of the left arm showed a Complex [id number] collection in the left forearm suggesting an abscess. You were started on broad spectrum antibiotics and taken to the operating room by Dr. Chapin for an Incision & Drainage procedure. A 2cm incision was made and pus within the would was expressed and the procedure was well tolerated. Today there was improved swelling, pain, and redness. You will be discharged on antibiotics with instruction to follow up with wound care and Dr. Chapin. - Take Clindamycin 300mg by mouth 4 times per day (every 6 hours) for 7 days - ANTIBIOTIC FOR INFECTION - Follow up with Wound Care Clinic, your Family Doctor, and Dr. Chapin as instructed by your appointments - If you notice any symptoms including fever, confusion, worsening redness or discharge from the wound, worsening pain in the arm, or any other concerning symptoms please be evaluated by a physician or return to the emergency department Current Hospital Diet Patient's current hospital diet: Regular Diet, N/A Discharge Diet Recommended Diet: Regular Diet Procedures Procedures Performed: incision and drainage of abcess of left arm Pending Studies Studies pending at discharge: yes List of pending studies: Wound Gram Stain and Blood Cultures Medical Emergencies . Who to Call and When: Medical Emergencies: If at any time you feel your situation is an emergency, please call 911 immediately. . Non-Emergent Contact Non-Emergency issues call your: Primary Care Provider . . "Provider Documentation" section prepared by Kevin Link. . VTE Core Measure Inpt VTE Proph given/why not?: SCD's
--- NOTE | 2017-04-08 13:51 | Discharge Summary ---
Discharge Summary Date of Service Apr 08, 2017. (Kevin Link MD) Discharge Summary Admission Date: Apr 07, 2017 at 22:44 Discharge Date: Apr 08, 2017 Discharge Disposition: Home Principal Diagnosis: Left forearm abscess, Sepsis Procedures: Left forearm Incision and Drainage (Kevin Link MD) Problems/Secondary Diagnoses: History of IVDA Current smoker Depression/anxiety disorder GERD Procedures: LEFT FOREARM ULTRASOUND CLINICAL HISTORY: Left forearm swelling. COMPARISON STUDY: Conventional radiographic study dated 04/07/2017 FINDINGS: Within the left proximal anterior forearm, there is soft tissue edema. There is a complex avascular subcutaneous collection with surrounding hypervascularity measuring 5.8 x 1.9 x 3.5 cm. Given the clinical history of an overlying cellulitis, the findings are viewed as suspicious for an abscess. An organizing hematoma could appear similar. IMPRESSION: Complex 58 x 19 x 35 mm collection within the anterior subcutaneous tissues of the proximal left forearm. Given the clinical history, the findings are viewed as suspicious for abscess. As stated above, an organizing hematoma could appear similar. LEFT FOREARM 2 VIEWS ROUTINE CLINICAL HISTORY: L forearm pain/injury. COMPARISON: None FINDINGS: No acute fracture of the left radius or ulna is identified. There is no evidence for left elbow joint effusion. There is minimal spurring of the olecranon at the insertion of triceps. IMPRESSION: No acute fracture of the left radius or ulna. Consultations: General Surgery (Yesi Lew MD) Medication Reconciliation New Medications: Clindamycin Hcl (Cleocin) 300 Mg Cap 300 MG PO QID for 7 Days, #28 CAP Continued Medications: Omeprazole (Prilosec) 20 Mg Capcr 20 MG PO DAILY, CAP Sertraline (Zoloft) 100 Mg Tab 100 MG PO QPM, TAB Discharge Exam Review of Systems: Constitutional: No fever, No chills, No fatigue Respiratory: No cough, No sputum, No shortness of breath Cardiovascular: No chest pain, No palpitations Abdomen: No pain, No nausea, No vomiting, No diarrhea, No constipation Integumentary: + problem reported (Infection over harm has significantly improved to almost half of its original size and is not leaking. The dressing is dry.) Physical Exam: General Appearance: WD/WN, no apparent distress Respiratory/Chest: chest non-tender, lungs clear, normal breath sounds Cardiovascular: regular rate, rhythm, no edema, no gallop Abdomen / GI: normal bowel sounds, non tender, soft Neurologic/Psychiatric: alert, normal mood/affect, normal reflexes, oriented x 3 Skin: + pertinent finding (Wound over left arm appreximately 3 cm in diameter with 2 cm incision in the center that is packed and dry with no draining. Prior to evaluating would dressing was c/d/i. ) (Kevin Link MD) Hospital Course The patient is a 36-year-old male presents to the ER with complaints of swelling , redness and pain in his left forearm which started about 2 days ago. The patient states that he notices swelling after he was wrestling with his son. He complained of 3-4/10 pain localized to the area and worse on extending or flexing the elbow joint. Patient also complained of a low grade fever and chills. Previous history of IVDU (heroin) but denies any drug use since Jun 2016. Ultrasound of the left arm showed a Complex [id number] collection in the left forearm suggesting an abscess. He started on broad spectrum antibiotics ( Vancomycin and Clindamycin) and taken to the operating room by Dr. Chapin for an Incision & Drainage procedure. A 2cm incision was made and pus within the would was expressed and the procedure was well tolerated. Today there was improved swelling, pain, and redness. The patient denies any fever, chills, nausea, or vomiting at this time. Incision site is packed and appears clean, dry, and intact. Plans to complete 10 day course of Clindamycin with follow up with Wound Care tomorrow, PCP in 1 week, and Dr. Chapin in 2 week. Total Time Spent: Greater than 30 minutes This includes examination of the patient, discharge planning, medication reconciliation, and communication with other providers. (Kevin Link MD) Total Time Spent: Greater than 30 minutes (Yesi Lew MD) Discharge Instructions Please refer to the electronic Patient Visit Report (Discharge Instructions) for additional information. (Kevin Link MD) Additional Copies To Jayleen Correia MD Reviewed: Pt Seen/Exam by Me (Yesi Lew MD) History Resident Physician Supervision Note: I interviewed and examined the patient. Discussed with Dr. Link and agree with findings and plan as documented in the note. Any exceptions or clarifications are listed here: Pt much improved since I&D in the OR last evening. Wound culture pending at time of discharge, Afebrile, no signs of sepsis. Pain controlled. Vitals reviewed NAD, AAOx3 NCAT, anicteric sclerae RRR no mgr nl S1S2 CTAB no wcr breathing unlabored Ext: Left prox forearm with incision with wick hanging out with minimal surrounding erythema and induration Pt is a 36 yo male with a h/o IVDA now abstinent and with neg UDS, GERD, Anxiety /depression, current smoker, here with left forearm abscess requiring I&D. He received IV Vanco and Clinda x 1 day. Was doing well and discharged to home with po clinda for one week course. He will f/u with Wound Clinic, PCP, and Surgery. His wound culture will need to be followed after discharge. Advised to return if spikes fever, has spreading redness, worsening pain, swelling, or for any other acute concerns. Discharged to home in good condition. Documented By: Yesi Lew (Yesi Lew MD)
[2017-04-08] MEDS ORDERED: SERTRALINE HCL 100 MG TAB PO SCH (21:00)
[2017-04-09] MEDS ORDERED: VANCOMYCIN TROUGH SCH (11:30)
== END 2017-04-08 14:51 | disposition home or self-care (01) | DRG 854 ==
LOC: C.EDB 18:34 → C.MSW 22:44 → ENRESERV 04-08 00:56
PROVIDERS: ADMIT Family Medicine; ATTEND Family Medicine
PROC: 0J9H0ZZ Drainage of Left Lower Arm Subcutaneous Tissue and Fascia, Open Approach (ICD-10-PCS; principal; 2017-04-07 22:45)
DX: A41.9 Sepsis, unspecified organism (principal); L02.414 Cutaneous abscess of left upper limb; X58.XXXA Exposure to other specified factors, initial encounter; Y93.72 Activity, wrestling; K21.9 Gastro-esophageal reflux disease without esophagitis; F41.9 Anxiety disorder, unspecified; F32.9 Major depressive disorder, single episode, unspecified; F17.210 Nicotine dependence, cigarettes, uncomplicated; Z86.59 Personal history of other mental and behavioral disorders; Z79.899 Other long term (current) drug therapy

== ENCOUNTER → 2017-10-04 | Outpatient (CLI) | payer OTHER ==
[~2017-10-04] MED LIST: PRLSR20 PO; SERT-234 PO
== END ==
LOC: C.LAB 05:22
DX: Z02.83 Encounter for blood-alcohol and blood-drug test (principal)